=== PATIENT | male | born 2000 | race Caucasian/White ===

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

== ENCOUNTER → 2022-09-25 | Outpatient (CLI) | payer OTHER | LOC: LAB SHORT 16:30 | DX: J02.9 Acute pharyngitis, unspecified (principal) | CPT/HCPCS: 87081 ==

== ENCOUNTER 2024-03-25 15:35 | Inpatient (IN) | payer OTHER ==
[~2024-03-25] VITALS: Ht 175.3 cm; Wt 90.7 kg
[2024-03-25] MEDS ORDERED: Dexamethasone Sod Phos 10 MG/ML 1ML VIAL IV ONE (15:50)
[2024-03-25] MEDS ORDERED: NS 1,000 ML IV SCH (15:50)
[2024-03-25 16:05] LABS: BASOPHILS ABSOLUTE AUTO 0.02 K/mm3 (0.00-0.23); BASOPHILS PERCENT AUTO 0 % (0-2); EOSINOPHILS ABSOLUTE AUTO 0.11 K/mm3 (0.00-0.68); EOSINOPHILS PERCENT AUTO 1 % (0-6); Hematocrit 42.3 % (37.0-53.0); Hemoglobin 14.8 g/dL (13.5-17.5); IMMATURE GRAN ABSOLUTE AUTO 0.04 K/mm3 (0.00-0.10); IMMATURE GRAN PERCENT AUTO 0 % (0-1); LYMPHOCYTES ABSOLUTE AUTO 1.43 K/mm3 (0.84-5.20); LYMPHOCYTES PERCENT AUTO 11 % (21-46); MONOCYTES ABSOLUTE AUTO 1.15 K/mm3 (0.16-1.47); MONOCYTES PERCENT AUTO 9 % (4-13); Mean Corpuscular HGB 28.9 pg (26.0-34.0); Mean Corpuscular Volume 83 fL (80-100); Mean Platelet Volume 8.8 fL (9.1-12.4); NEUTROPHILS ABSOLUTE AUTO 10.82 K/mm3 (1.96-9.15); NEUTROPHILS PERCENT AUTO 80 % (41-73); Platelet Count 310 K/mm3 (150-400); RDW Coefficient Variation 11.9 % (11.7-14.2); RDW Standard Deviation 35.9 fL (35.1-46.3); Red Blood Cell Count 5.12 M/mm3 (4.30-5.90); White Blood Cell Count 13.57 K/mm3 (4.00-11.30)
[2024-03-25 16:31] LABS: Albumin, Blood 3.9 g/dL (3.4-5.0); Albumin/Globulin Ratio 0.8 (0.8-1.8); Bilirubin, Total 0.8 mg/dL (0.1-1.0); Bun/Creatinine Ratio 9.6 (12.0-20.0); Calcium, Blood 9.5 mg/dL (8.5-10.1); Creatinine, Blood 0.93 mg/dL (0.60-1.20); Globulin, Blood 4.8 g/dL (2.2-4.0); Potassium, Blood 3.8 mmol/L (3.5-5.5); Total Protein, Blood 8.7 g/dL (6.4-8.2)
[2024-03-25] MEDS ORDERED: Ampicillin Sod/Sulbactam Sod 3 GM in NS 100 ML IV ONE (17:55)
[2024-03-25] MEDS ORDERED: Lactated Ringer's 1,000 ML IV SCH (19:30)
[2024-03-25] MEDS ORDERED: Morphine Sulfate 4 MG/1 ML Injection IV PRN (19:35)
[2024-03-25 20:55] VITALS: BP 153/88
[2024-03-26] MEDS ORDERED: Dexamethasone Sod Phos 10 MG/ML 1ML VIAL IV SCH
[2024-03-26] MEDS ORDERED: Ampicillin Sod/Sulbactam Sod 3 GM in NS 100 ML IV SCH
--- NOTE | 2024-03-26 03:54 | NUR ---
SHIFT SUMMARY PT.ARRIVED TO [facility] @2014, MOTHER AND SISTER BY THE BEDSIDE. RN CASSIUS COMPLETED THE INITIAL ADMISSION ASSESSMENT. PT IS A&O X 4, ABLE TO MAKE HIS NEEDS KNOWN, AND COOP WITH CARE. PT.C/O 6/10WORST RIGHT SIDED MOUTH AND NECK PAIN, MEDICATED WITH MORPHINE IV ORDERED, EFFECTIVE FOR PAIN, PER PT.REPORT (SEE EMAR.) LR INFUSING 1 OUT OF 2 BAGS DURING THIS SHIFT. IV ANTIBIOTICS AND STEROIDS ADMINISTERED ORDERED. EDUCATED TO CALL LIGHT, BED AT THE LOWEST POSITION. WILL HANDOFF TO INCOMING SHIFT NURSE.
[2024-03-26 05:17] VITALS: BP 165/81
[2024-03-26 07:05] LABS: BASOPHILS ABSOLUTE AUTO 0.01 K/mm3 (0.00-0.23); BASOPHILS PERCENT AUTO 0 % (0-2); EOSINOPHILS PERCENT AUTO 0 % (0-6); Hematocrit 43.2 % (37.0-53.0); Hemoglobin 15.1 g/dL (13.5-17.5); IMMATURE GRAN ABSOLUTE AUTO 0.05 K/mm3 (0.00-0.10); IMMATURE GRAN PERCENT AUTO 1 % (0-1); LYMPHOCYTES ABSOLUTE AUTO 0.92 K/mm3 (0.84-5.20); LYMPHOCYTES PERCENT AUTO 9 % (21-46); MONOCYTES ABSOLUTE AUTO 0.08 K/mm3 (0.16-1.47); MONOCYTES PERCENT AUTO 1 % (4-13); Mean Corpuscular HGB 28.7 pg (26.0-34.0); Mean Corpuscular Volume 82 fL (80-100); Mean Platelet Volume 8.6 fL (9.1-12.4); NEUTROPHILS ABSOLUTE AUTO 9.16 K/mm3 (1.96-9.15); NEUTROPHILS PERCENT AUTO 90 % (41-73); Platelet Count 343 K/mm3 (150-400); RDW Coefficient Variation 11.7 % (11.7-14.2); RDW Standard Deviation 34.9 fL (35.1-46.3); Red Blood Cell Count 5.26 M/mm3 (4.30-5.90); White Blood Cell Count 10.22 K/mm3 (4.00-11.30)
[2024-03-26 07:33] VITALS: BP 132/81
[2024-03-26 07:33] LABS: Albumin, Blood 3.4 g/dL (3.4-5.0); Albumin/Globulin Ratio 0.7 (0.8-1.8); Bilirubin, Total 0.4 mg/dL (0.1-1.0); Bun/Creatinine Ratio 16.4 (12.0-20.0); Calcium, Blood 9.3 mg/dL (8.5-10.1); Creatinine, Blood 0.73 mg/dL (0.60-1.20); Globulin, Blood 5.1 g/dL (2.2-4.0); Total Protein, Blood 8.5 g/dL (6.4-8.2)
[2024-03-26 14:39] VITALS: BP 133/76
[2024-03-26] MEDS ORDERED: IBU800 M1 PO (15:04)
--- NOTE | 2024-03-26 16:56 | NUR ---
RN STATES PT IN ENHANCED DROPLET PRECAUTIONS. NO PENDING SEROLOGY, NO NOTES OF EXPOSURE, NO S/Sx RESPIRATORY CONCERNS. NO ISO PRECAUTIONS ORDERED. OK TO REMOVE ISO.
--- NOTE | 2024-03-26 18:23 | NUR ---
SHIFT SUMMARY PT A&OX4, VSS, AMB IND, TOLERATING PO, VOIDING, AND DENIED PAIN. NO ACUTE CHANGES. CALL LIGHT WITHIN REACH AND PT ABLE TO MAKE NEEDS KNOWN.
[2024-03-26 19:34] VITALS: BP 131/80
[2024-03-26] MEDS ORDERED: Lactobacil 2-S.Thermo-Bifido 1 1 Cap PO SCH (21:00)
[2024-03-27 03:47] VITALS: BP 138/75
--- NOTE | 2024-03-27 04:17 | NUR ---
SHIFT SUMMARY PT.IS A&O X4, ABLE TO MAKE HIS NEEDS KNOWN. IV ABX AND STEROIDS ADMINISTERED ORDERED.PT.DENIES PAIN.NO ACUTE EVENTS DURING THIS SHIFT. WILL HANDOFF TO THE INCOMING SHIFT NURSE. CALL LIGHT IN REACH.
[2024-03-27 06:02] LABS: BASOPHILS ABSOLUTE AUTO 0.02 K/mm3 (0.00-0.23); BASOPHILS PERCENT AUTO 0 % (0-2); EOSINOPHILS ABSOLUTE AUTO 0.01 K/mm3 (0.00-0.68); EOSINOPHILS PERCENT AUTO 0 % (0-6); Hemoglobin 14.8 g/dL (13.5-17.5); IMMATURE GRAN ABSOLUTE AUTO 0.08 K/mm3 (0.00-0.10); IMMATURE GRAN PERCENT AUTO 1 % (0-1); LYMPHOCYTES PERCENT AUTO 8 % (21-46); MONOCYTES ABSOLUTE AUTO 0.36 K/mm3 (0.16-1.47); MONOCYTES PERCENT AUTO 2 % (4-13); Mean Corpuscular HGB 28.8 pg (26.0-34.0); Mean Corpuscular HGB Conc 35.2 g/dL (31.5-36.5); Mean Corpuscular Volume 82 fL (80-100); NEUTROPHILS PERCENT AUTO 89 % (41-73); Platelet Count 379 K/mm3 (150-400); RDW Coefficient Variation 11.8 % (11.7-14.2); RDW Standard Deviation 35.1 fL (35.1-46.3); Red Blood Cell Count 5.13 M/mm3 (4.30-5.90); White Blood Cell Count 17.57 K/mm3 (4.00-11.30)
[2024-03-27 06:40] LABS: Bun/Creatinine Ratio 23.4 (12.0-20.0); Calcium, Blood 9.3 mg/dL (8.5-10.1); Creatinine, Blood 0.73 mg/dL (0.60-1.20); Potassium, Blood 4.2 mmol/L (3.5-5.5)
[2024-03-27 08:25] VITALS: BP 142/87
[2024-03-27] MEDS ORDERED: AMOCLA875 PO (11:06)
[2024-03-27] MEDS ORDERED: METPRE4DP PO (11:07)
[2024-03-27] MEDS ORDERED: VISBIOME 112.51 EACH PO (11:07)
--- NOTE | 2024-03-27 11:19 | NUR ---
DISCHARGE NOTE PT DISCHARGED HOME AT 1117. PT PROVIDED W/ VERBAL AND WRITTEN INSTRUCTIONS AND REPORTED UNDERSTANDING. PT A&OX3, VSS, AMB IND, TOLERATING PO, VOIDING, AND DENIED PAIN. BELONGINGS WERE RETURNED AND PT ESCOURTED HIMSELF OUT IND.
== END 2024-03-27 11:17 | disposition home or self-care (01) | DRG 862 ==
LOC: ER 15:35 → MEDS 19:31
PROVIDERS: Family Medicine; Physician Assistant; ADMIT Internal Medicine
DX: T81.41XA Infection following a procedure, superficial incisional surgical site, initial encounter (principal); A41.9 Sepsis, unspecified organism; L03.221 Cellulitis of neck; T81.44XA Sepsis following a procedure, initial encounter; K04.7 Periapical abscess without sinus; Z98.890 Other specified postprocedural states; Z79.891 Long term (current) use of opiate analgesic; Z79.899 Other long term (current) drug therapy
CPT/HCPCS: 36415; 70491; 80048; 80053; 83605; 85025; 96361; 96365-59; 96375; 99284-25; A9270; J0295; J1100; J2270; J7030; J7120; Q9967